=== PATIENT | male | born 1955 | race Caucasian/White ===

== ENCOUNTER 2023-03-24 04:52 | Emergency (ER) | payer OTHER ==
--- OUTSIDE RECORDS SUMMARY | 2023-03-24 04:59 | XMS REPORT | Continuity of Care Document ---
:1955 Author Organization [facility] t Address [address] [place] [address] [place] [id number] Care Team Providers Name Role Phone ILDEFONSOANJELICA MUSE LEONA Primary Care Physician Unavailable MARYJO CROW Attending Clinician Unavailable Carson Candelario Attending Clinician ADDI PAGE Attending Clinician Unavailable Amadou Post Attending Clinician Addi Page MD Attending Clinician Kailyn Guevara Attending Clinician Unknown, Attending Attending Clinician Unavailable UNKNOWN, ATTENDING Attending Clinician Unavailable Payers Payer Name Policy Type Policy Number Effective Date Expiration Date S kalyn [employer] MEDICARE ADV [id number] 2019 00:00:00 Problems Condition Condition Condition Status Onset Resolution Last Treating Co mments Source Name Details Category Date Date Treatment Clinician Date Hyperlipid Hyperlipi Problem Active 2020-10-30 Memoria emia demia 01:35:37 l (disorder) (disorder) He rmann Active Problem 10/30/2020 [facility] Hypothyroi Problem Active 2020-10-30 M emoria dism Hypothyroi 01:35:37 l (disorder) dism Jeremiah n (disorder) Active Problem 10/30/2020 [facility] Simple Simple Problem Active 2020-10-30 Monty krissy obesity obesity 01:35:37 l (disorder) (disorder) He rmann Active Problem 10/30/2020 [facility] Diabetes Diabetes Problem Active 2020-10-30 Memoria mellitus mellitus 01:35:37 l (disorder) (disorder) He rmann Active Problem 10/30/2020 [facility] Diplopia Diplopia Problem Active 2020-10-30 Memoria (disorder) (disorder) 01:35:37 l Active Yoel Problem 10/30/2020 [facility] Hypertensi Hypertens Problem Active 2020-10-30 Memoria ve norbert 01:35:37 l disorder, disorder, Herm emperatriz systemic systemic arterial arterial (disorder) (disorder) Active Problem 10/30/2020 [facility] No known No known Disease Unive rs active active ity of problems problems [facility] Allergies, Adverse Reactions, Alerts Allergy Allergy Status Severity Reaction(s) Onset Inactive Treating Comm ents Source Name Type Date Date Clinician NO KNOWN Drug Active Univers ALLERGIE Class ity of S [facility] codeine codeine Active Memoria l Yoel penicill penicill Active Memori a in in l [place] Demerol Demerol Active Memoria l Yoel Social History Social Habit Start Date Stop Date Quantity Comments Source Sex Assigned At [facility] Exposure to Not sure [facility] SARS-CoV-2 (event) Medica l [place] Tobacco use and 2020-10-26 2020-10-26 Never used [facility] exposure 00:00:00 00:00:00 [facility] Smoking Status Start Date Stop Date Source Social History [facility] Medications Ordered Filled Start Stop Current Ordering Indication Dosage Frequency Signature Comments Components Source Medication Medication Date Date Medication? Clinician (SIG) Name Name triamcinolo 2020- No 40mg 40 mg, Uni vers ne 10-26 Intra-sandra ity of acetonide 23:00: 21:53 [place], [place] (KENALOG) 00 :00 ONCE, 1 Medical injection dose, Wed Branc h 40 mg 10/26/20 at 1700, Routine triamcinolo 2020- No 40mg Unive rs ne 10-26 ity of acetonide 23:00: 21:53 [place] (KENALOG) 00 :00 Medical injection Branch 40 mg triamcinolo 2020- No 40mg 40 mg, Uni vers ne 10-26 Intra-sandra ity of acetonide 23:00: 21:[place] 00 :00 ONCE, 1 Medical injection dose, Wed Branc h 40 mg 10/26/20 at 1700, Routine triamcinolo 2020-0 2020- No 40mg Unive rs ne 10-26 ity of acetonide 23:00: 21:53 [place] (KE[place]LOG) 00 :00 Medical injection Branch 40 mg Hydralazine 2019-10 Yes 25 mg = 1 M emoria Hydrochlori 2-23 tab, PO, l de 25 MG 16:23: TID, # 270 Her chavis Oral Tablet 00 tab, 1 Refill(s) Hydralazine 2019-10 Yes 25 mg = 1 M emoria Hydrochlori 2-23 tab, PO, l de 25 MG 16:23: TID, # 270 Her chavis Oral Tablet 00 tab, 1 Refill(s) Folic Acid 2019-10 Yes 1 mg, PO, Me moria 2-23 Daily, 0 l 16:23: Refill(s) Yoel 00 Folic Acid 2019-10 Yes 1 mg, PO, Me moria 2-23 Daily, 0 l 16:23: Refill(s) [place] 00 Hydralazine 2019-10 Yes 25 mg = 1 M emoria Hydrochlori 2-23 tab, PO, l de 25 MG 16:23: TID, # 270 Her chavis Oral Tablet 00 tab, 1 Refill(s) Folic Acid 2019-10 Yes 1 mg, PO, Me moria 2-23 Daily, 0 l 16:23: Refill(s) [place] 00 Hydralazine 2019-10 Yes 25 mg = 1 M emoria Hydrochlori 2-23 tab, PO, l de 25 MG 16:23: TID, # 270 Her chavis Oral Tablet 00 tab, 1 Refill(s) Folic Acid 2019-10 Yes 1 mg, PO, Me moria 2-23 Daily, 0 l 16:23: Refill(s) Yoel 00 Hydralazine 2019-10 Yes 25 mg = 1 M emoria Hydrochlori 2-23 tab, PO, l de 25 MG 16:23: TID, # 270 Her chavis Oral Tablet 00 tab, 1 Refill(s) Folic Acid 2019-10 Yes 1 mg, PO, Me moria 2-23 Daily, 0 l 16:23: Refill(s) Yoel 00 Hydralazine 2019-10 Yes 25 mg = 1 M emoria Hydrochlori 2-23 tab, PO, l de 25 MG 16:23: TID, # 270 Her partha Oral Tablet 00 tab, 1 Refill(s) Folic Acid 2019-10 Yes 1 mg, PO, Me moria 2-23 Daily, 0 l 16:23: Refill(s) Yoel 00 allopurinol 2019-10 Yes 100 mg = 1 Memoria 100 mg oral 2-23 tab, PO, l tablet 16:16: BID, 0 [place] 00 Refill(s) amLODIPine 2019-10 Yes 10 mg = 1 Me moria 10 mg oral 2-23 tab, PO, l tablet 16:16: Daily, 0 Yoel 00 Refill(s) Hydrochloro 2019-10 Yes 1 tab, PO, Memoria thiazide 2-23 Daily, 0 l 12.5 MG / 16:16: Refill(s) Her chavis Olmesartan 00 medoxomil 40 MG Oral Tablet pravastatin 2019-10 Yes 40 mg = 1 M emoria 40 mg oral 2-23 tab, PO, l tablet 16:16: Daily, 0 [place] 00 Refill(s) DULoxetine 2019-10 Yes 60 mg = 1 Me moria 60 mg oral 2-23 cap, PO, l delayed 16:16: Daily, 0 Jeremiah n release 00 Refill(s) capsule metoprolol 2019-10 Yes 25 mg = 1 Me moria tartrate 25 2-23 tab, PO, l mg oral 16:16: BID, 0 [place] tablet 00 Refill(s) zolpidem 2019-10 Yes 12.5 mg = Monty krissy 12.5 mg 2-23 1 tab, PO, l oral 16:16: Bedtime, Yoel tablet, 00 PRN for extended sleep, 0 release Refill(s) levothyroxi 2019-10 Yes 100 Memori a ne 100 mcg 2-23 microgram l (0.1 mg) 16:16: = 1 tab, Princess nn oral tablet 00 PO, Daily, 0 Refill(s) glimepiride 2019-10 Yes 2 mg = 1 Me moria 2 mg oral 2-23 tab, PO, l tablet 16:16: Daily, 0 Yoel 00 Refill(s) Metformin 2019-10 Yes 1,000 mg = Me moria hydrochlori 2-23 1 tab, PO, l de 1000 MG 16:16: BID-Meals, H ermann Oral Tablet 00 # 30 tab, 0 Refill(s) allopurinol 2019-10 Yes 100 mg = 1 Memoria 100 mg oral 2-23 tab, PO, l tablet 16:16: BID, 0 Yoel 00 Refill(s) amLODIPine 2019-10 Yes 10 mg = 1 Me moria 10 mg oral 2-23 tab, PO, l tablet 16:16: Daily, 0 [place] 00 Refill(s) Hydrochloro 2019-10 Yes 1 tab, PO, Memoria thiazide 2-23 Daily, 0 l 12.5 MG / 16:16: Refill(s) Her partha Olmesartan 00 medoxomil 40 MG Oral Tablet pravastatin 2019-10 Yes 40 mg = 1 M emoria 40 mg oral 2-23 tab, PO, l tablet 16:16: Daily, 0 [place] 00 Refill(s) DULoxetine 2019-10 Yes 60 mg = 1 Me moria 60 mg oral 2-23 cap, PO, l delayed 16:16: Daily, 0 Jeremiah n release 00 Refill(s) capsule metoprolol 2019-10 Yes 25 mg = 1 Me moria tartrate 25 2-23 tab, PO, l mg oral 16:16: BID, 0 [place] tablet 00 Refill(s) zolpidem 2019-10 Yes 12.5 mg = Monty krissy 12.5 mg 2-23 1 tab, PO, l oral 16:16: Bedtime, Yoel tablet, 00 PRN for extended sleep, 0 release Refill(s) levothyroxi 2019-10 Yes 100 Memori a ne 100 mcg 2-23 microgram l (0.1 mg) 16:16: = 1 tab, Princess nn oral tablet 00 PO, Daily, 0 Refill(s) glimepiride 2019-10 Yes 2 mg = 1 Me moria 2 mg oral 2-23 tab, PO, l tablet 16:16: Daily, 0 [place] 00 Refill(s) Metformin 2019-10 Yes 1,000 mg = Me moria hydrochlori 2-23 1 tab, PO, l de 1000 MG 16:16: BID-Meals, H ermann Oral Tablet 00 # 30 tab, 0 Refill(s) allopurinol 2019-10 Yes 100 mg = 1 Memoria 100 mg oral 2-23 tab, PO, l tablet 16:16: BID, 0 Yoel 00 Refill(s) Metformin 2019-10 Yes 1,000 mg = Me moria hydrochlori 2-23 1 tab, PO, l de 1000 MG 16:16: BID-Meals, H ermann Oral Tablet 00 # 30 tab, 0 Refill(s) amLODIPine 2019-10 Yes 10 mg = 1 Me moria 10 mg oral 2-23 tab, PO, l tablet 16:16: Daily, 0 Oyel 00 Refill(s) allopurinol 2019-10 Yes 100 mg = 1 Memoria 100 mg oral 2-23 tab, PO, l tablet 16:16: BID, 0 [place] 00 Refill(s) amLODIPine 2019-10 Yes 10 mg = 1 Me moria 10 mg oral 2-23 tab, PO, l tablet 16:16: Daily, 0 [place] 00 Refill(s) Hydrochloro 2019-10 Yes 1 tab, PO, Memoria thiazide 2-23 Daily, 0 l 12.5 MG / 16:16: Refill(s) Her chavis Olmesartan 00 medoxomil 40 MG Oral Tablet pravastatin 2019-10 Yes 40 mg = 1 M emoria 40 mg oral 2-23 tab, PO, l tablet 16:16: Daily, 0 Yoel 00 Refill(s) DULoxetine 2019-10 Yes 60 mg = 1 Me moria 60 mg oral 2-23 cap, PO, l delayed 16:16: Daily, 0 Jeremiah n release 00 Refill(s) capsule metoprolol 2019-10 Yes 25 mg = 1 Me moria tartrate 25 2-23 tab, PO, l mg oral 16:16: BID, 0 Yoel tablet 00 Refill(s) zolpidem 2019-10 Yes 12.5 mg = Monty krissy 12.5 mg 2-23 1 tab, PO, l oral 16:16: Bedtime, [place] tablet, 00 PRN for extended sleep, 0 release Refill(s) levothyroxi 2019-10 Yes 100 Memori a ne 100 mcg 2-23 microgram l (0.1 mg) 16:16: = 1 tab, Princess nn oral tablet 00 PO, Daily, 0 Refill(s) glimepiride 2019-10 Yes 2 mg = 1 Me moria 2 mg oral 2-23 tab, PO, l tablet 16:16: Daily, 0 [place] 00 Refill(s) Hydrochloro 2019-10 Yes 1 tab, PO, Memoria thiazide 2-23 Daily, 0 l 12.5 MG / 16:16: Refill(s) Her chavis Olmesartan 00 medoxomil 40 MG Oral Tablet pravastatin 2019-10 Yes 40 mg = 1 M emoria 40 mg oral 2-23 tab, PO, l tablet 16:16: Daily, 0 [place] 00 Refill(s) DULoxetine 2019-10 Yes 60 mg = 1 Me moria 60 mg oral 2-23 cap, PO, l delayed 16:16: Daily, 0 Jeremiah n release 00 Refill(s) capsule metoprolol 2019-10 Yes 25 mg = 1 Me moria tartrate 25 2-23 tab, PO, l mg oral 16:16: BID, 0 Yoel tablet 00 Refill(s) zolpidem 2019-10 Yes 12.5 mg = Monty krissy 12.5 mg 2-23 1 tab, PO, l oral 16:16: Bedtime, Yoel tablet, 00 PRN for extended sleep, 0 release Refill(s) levothyroxi 2019-10 Yes 100 Memori a ne 100 mcg 2-23 microgram l (0.1 mg) 16:16: = 1 tab, Princess nn oral tablet 00 PO, Daily, 0 Refill(s) glimepiride 2019-10 Yes 2 mg = 1 Me moria 2 mg oral 2-23 tab, PO, l tablet 16:16: Daily, 0 Yoel 00 Refill(s) Metformin 2019-10 Yes 1,000 mg = Me moria hydrochlori 2-23 1 tab, PO, l de 1000 MG 16:16: BID-Meals, H ermann Oral Tablet 00 # 30 tab, 0 Refill(s) allopurinol 2019-10 Yes 100 mg = 1 Memoria 100 mg oral 2-23 tab, PO, l tablet 16:16: BID, 0 [place] 00 Refill(s) amLODIPine 2019-10 Yes 10 mg = 1 Me moria 10 mg oral 2-23 tab, PO, l tablet 16:16: Daily, 0 Yoel 00 Refill(s) Hydrochloro 2019-10 Yes 1 tab, PO, Memoria thiazide 2-23 Daily, 0 l 12.5 MG / 16:16: Refill(s) Her chavis Olmesartan 00 medoxomil 40 MG Oral Tablet pravastatin 2019-10 Yes 40 mg = 1 M emoria 40 mg oral 2-23 tab, PO, l tablet 16:16: Daily, 0 [place] 00 Refill(s) DULoxetine 2019-10 Yes 60 mg = 1 Me moria 60 mg oral 2-23 cap, PO, l delayed 16:16: Daily, 0 Jeremiah n release 00 Refill(s) capsule metoprolol 2019-10 Yes 25 mg = 1 Me moria tartrate 25 2-23 tab, PO, l mg oral 16:16: BID, 0 [place] tablet 00 Refill(s) zolpidem 2019-10 Yes 12.5 mg = Monty krissy 12.5 mg 2-23 1 tab, PO, l oral 16:16: Bedtime, Yoel tablet, 00 PRN for extended sleep, 0 release Refill(s) levothyroxi 2019-10 Yes 100 Memori a ne 100 mcg 2-23 microgram l (0.1 mg) 16:16: = 1 tab, Princess nn oral tablet 00 PO, Daily, 0 Refill(s) glimepiride 2019-10 Yes 2 mg = 1 Me moria 2 mg oral 2-23 tab, PO, l tablet 16:16: Daily, 0 Yoel 00 Refill(s) Metformin 2019-10 Yes 1,000 mg = Me moria hydrochlori 2-23 1 tab, PO, l de 1000 MG 16:16: BID-Meals, H ermann Oral Tablet 00 # 30 tab, 0 Refill(s) Metformin 2019-10 Yes 1,000 mg = Me moria hydrochlori 2-23 1 tab, PO, l de 1000 MG 16:16: BID-Meals, H ermann Oral Tablet 00 # 30 tab, 0 Refill(s) allopurinol 2019-10 Yes 100 mg = 1 Memoria 100 mg oral 2-23 tab, PO, l tablet 16:16: BID, 0 [place] 00 Refill(s) amLODIPine 2019-10 Yes 10 mg = 1 Me moria 10 mg oral 2-23 tab, PO, l tablet 16:16: Daily, 0 [place] 00 Refill(s) Hydrochloro 2019-10 Yes 1 tab, PO, Memoria thiazide 2-23 Daily, 0 l 12.5 MG / 16:16: Refill(s) Her chavis Olmesartan 00 medoxomil 40 MG Oral Tablet pravastatin 2019-10 Yes 40 mg = 1 M emoria 40 mg oral 2-23 tab, PO, l tablet 16:16: Daily, 0 Yoel 00 Refill(s) DULoxetine 2019-10 Yes 60 mg = 1 Me moria 60 mg oral 2-23 cap, PO, l delayed 16:16: Daily, 0 Jeremiah n release 00 Refill(s) capsule metoprolol 2019-10 Yes 25 mg = 1 Me moria tartrate 25 2-23 tab, PO, l mg oral 16:16: BID, 0 Yoel tablet 00 Refill(s) zolpidem 2019-10 Yes 12.5 mg = Monty krissy 12.5 mg 2-23 1 tab, PO, l oral 16:16: Bedtime, [place] tablet, 00 PRN for extended sleep, 0 release Refill(s) levothyroxi 2019-10 Yes 100 Memori a ne 100 mcg 2-23 microgram l (0.1 mg) 16:16: = 1 tab, Princess nn oral tablet 00 PO, Daily, 0 Refill(s) glimepiride 2019-10 Yes 2 mg = 1 Oh moria 2 mg oral 2-23 tab, PO, l tablet 16:16: Daily, 0 Yoel 00 Refill(s) amLODIPine Yes amlodipine U nivers 10 mg 3-14 10 mg ity of tablet 22:54: tablet [address] amLODIPine Yes amlodipine U nivers 10 mg 3-14 10 mg ity of tablet 22:54: tablet [address] hydroCHLORO Yes hydrochlor Univers thiazide 50 3-14 othiazide ity of mg tablet 22:54: [address] olmesartan- Yes olmesartan Univers hydrochloro 3-14 40 ity of thiazide 22:54: mg-hydroch Primo as 40-12.5 mg lorothiazi Med ical per tablet de 12.5 mg Bra nc tablet pravastatin Yes pravastati Univers 40 mg 3-14 n 40 mg ity of tablet 22:54: tablet [address] glimepiride 2019-0 Yes glimepirid Univers 2 mg tablet 3-14 e 2 mg ity of 22:54: tablet [address] zolpidem Yes zolpidem Unive rs 12.5 mg CR 3-14 ER 12.5 mg ity of tablet 22:54: tablet,ext [place] [id number] ended Medical release,[facility] ltiphase hydroCHLORO Yes hydrochlor Univers thiazide 50 3-14 othiazide ity of mg tablet 22:54: 50 mg [place] [address] tablet [facility] olmesartan- Yes olmesartan Univers hydrochloro 3-14 40 ity of thiazide 22:54: mg-hydroch Primo as 40-12.5 mg 33 lorothiazi Med ical per tablet de 12.5 mg Bra nc tablet pravastatin Yes pravastati Univers 40 mg 3-14 n 40 mg ity of tablet 22:54: tablet [address] glimepiride Yes glimepirid Univers 2 mg tablet 3-14 e 2 mg ity of 22:54: tablet [address] zolpidem Yes zolpidem Unive rs 12.5 mg CR 3-14 ER 12.5 mg ity of tablet 22:54: tablet,ext [place] [address] ended Medical [facility] ltiphase amLODIPine Yes amlodipine U nivers 10 mg 3-14 10 mg ity of tablet 22:54: tablet [address] hydroCHLORO 0 Yes hydrochlor Univers thiazide 50 3-14 othiazide ity of mg tablet 22:54: 50 mg [place] [address] tablet [facility] olmesartan- Yes olmesartan Univers hydrochloro 3-14 40 ity of thiazide 22:54: mg-hydroch Primo as 40-12.5 mg 33 lorothiazi Med ical per tablet de 12.5 mg Bra nch tablet pravastatin Yes pravastati Univers 40 mg 3-14 n 40 mg ity of tablet 22:54: tablet [address] glimepiride 2019- Yes glimepirid Univers 2 mg tablet 3-14 e 2 mg ity of 22:54: tablet [address] zolpidem 2020-0 Yes zolpidem Unive rs 12.5 mg CR 3-14 ER 12.5 mg ity of tablet 22:54: tablet,ext [place] [id number] ended Medical release,[facility] ltiphase amLODIPine 2019-0 Yes amlodipine U nivers 10 mg 3-14 10 mg ity of tablet 22:54: tablet [address] hydroCHLORO 2019-0 Yes hydrochlor Univers thiazide 50 3-14 othiazide ity of mg tablet 22:54: 50 mg [place] [address] tablet [facility] olmesartan- 0 Yes olmesartan Univers hydrochloro 3-14 40 ity of thiazide 22:54: mg-hydroch Primo as 40-12.5 mg 33 lorothiazi Med ical per tablet de 12.5 mg Bra nch tablet pravastatin 0 Yes pravastati Univers 40 mg 3-14 n 40 mg ity of tablet 22:54: tablet [address] glimepiride Yes glimepirid Univers 2 mg tablet 3-14 e 2 mg ity of 22:54: tablet [address] zolpidem Yes zolpidem Unive rs 12.5 mg CR 3-14 ER 12.5 mg ity of tablet 22:54: tablet,ext [place] [address] ended Medical [facility] ltiphase amLODIPine 2019-0 Yes amlodipine U nivers 10 mg 3-14 10 mg ity of tablet 22:54: tablet [address] hydroCHLORO 0 Yes hydrochlor Univers thiazide 50 3-14 othiazide ity of mg tablet 22:54: 50 mg [place] [address] tablet [facility] olmesartan- Yes olmesartan Univers hydrochloro 3-14 40 ity of thiazide 22:54: mg-hydroch Primo as 40-12.5 mg 33 lorothiazi Med ical per tablet de 12.5 mg Bra nch tablet pravastatin 2019-0 Yes pravastati Univers 40 mg 3-14 n 40 mg ity of tablet 22:54: tablet [address] glimepiride Yes glimepirid Univers 2 mg tablet 3-14 e 2 mg ity of 22:54: tablet [address] zolpidem Yes zolpidem Unive rs 12.5 mg CR 3-14 ER 12.5 mg ity of tablet 22:54: tablet,ext [place] [address] ended Medical release, Branch ltiphase amLODIPine 2019-0 Yes amlodipine U nivers 10 mg 3-14 10 mg ity of tablet 22:54: tablet [address] hydroCHLORO 2019-0 Yes hydrochlor Univers thiazide 50 3-14 othiazide ity of mg tablet 22:54: 50 mg [place] [address] tablet [facility] olmesartan- 2019-0 Yes olmesartan Univers hydrochloro 3-14 40 ity of thiazide 22:54: mg-hydroch Primo as 40-12.5 mg lorothiazi Med ical per tablet de 12.5 mg Bra nch tablet pravastatin 2019-0 Yes pravastati Univers 40 mg 3-14 n 40 mg ity of tablet 22:54: tablet [address] glimepiride 2019-0 Yes glimepirid Univers 2 mg tablet -14 e 2 mg ity of 22:54: tablet [address] zolpidem 2019-0 Yes zolpidem Unive rs 12.5 mg CR 3-14 ER 12.5 mg ity of tablet 22:54: tablet,ext [place] [address] ended Medical release,[facility] ltiphase DULoxetine 0 Yes Univers 60 mg 3-01 ity of capsule 00:00: [address] DULoxetine 2019-0 Yes Univers 60 mg 3-01 ity of capsule 00:00: [address] DULoxetine 2019-0 Yes Univers 60 mg 3-01 ity of capsule 00:00: [address] DULoxetine 2019-0 Yes Univers 60 mg 3-01 ity of capsule 00:00: [address] DULoxetine 2019-0 Yes Univers 60 mg 3-01 ity of capsule 00:00: [address] DULoxetine 2019-0 Yes Univers 60 mg 3-01 ity of capsule 00:00: [address] metFORMIN 2019-0 Yes Univers 1,000 mg 2-24 ity of tablet 00:00: [address] metFORMIN 2019-0 Yes Univers 1,000 mg 2-24 ity of tablet 00:00: [address] metFORMIN 2019-0 Yes Univers 1,000 mg 2-24 ity of tablet 00:00: [address] metFORMIN 2020-0 Yes Univers 1,000 mg 2-24 ity of tablet 00:00: [place] 00 Medical Branch metFORMIN 2020-0 Yes Univers 1,000 mg 2-24 ity of tablet 00:00: 00 Medical Branch metFORMIN 2020-0 Yes Univers 1,000 mg 2-24 ity of tablet 00:00: 00 Medical Branch gabapentin 2020-0 Yes 100mg Take 100 Un misti 100 mg 2-20 mg by ity of capsule 00:00: mouth 00 daily. Medical Branch gabapentin 2020-0 Yes 100mg Take 100 Un misti 100 mg 2-20 mg by ity of capsule 00:00: mouth 00 daily. Medical Branch gabapentin 2020-0 Yes 100mg Take 100 Un misti 100 mg 2-20 mg by ity of capsule 00:00: mouth 00 daily. Medical Branch gabapentin 2020-0 Yes 100mg Take 100 Un misti 100 mg 2-20 mg by ity of capsule 00:00: [facility] 00 daily. Medical Branch gabapentin 2020-0 Yes 100mg Take 100 Un misti 100 mg 2-20 mg by ity of capsule 00:00: [facility] 00 daily. Medical Branch gabapentin 2020-0 Yes 100mg Take 100 Un misti 100 mg 2-20 mg by ity of capsule 00:00: mouth 00 daily. Medical Branch hydrALAZINE 2020-0 Yes TAKE 1 Univ ers 25 mg 2-19 TABLET BY ity of tablet 00:00: [facility] 00 THREE Medical TIMES A Branch DAY hydrALAZINE 2020-0 Yes TAKE 1 Univ ers 25 mg 2-19 TABLET BY ity of tablet 00:00: [facility] 00 THREE Medical TIMES A Branch DAY hydrALAZINE 2020-0 Yes TAKE 1 Univ ers 25 mg 2-19 TABLET BY ity of tablet 00:00: [facility] 00 THREE Medical TIMES A Branch DAY hydrALAZINE 2020-0 Yes TAKE 1 Univ ers 25 mg 2-19 TABLET BY ity of tablet 00:00: MOUTH 00 THREE Medical TIMES A Branch DAY hydrALAZINE 2020-0 Yes TAKE 1 Univ ers 25 mg 2-19 TABLET BY ity of tablet 00:00: [facility] 00 THREE Medical TIMES A Branch DAY hydrALAZINE 2020-0 Yes TAKE 1 Univ ers 25 mg 2-19 TABLET BY ity of tablet 00:00: MOUTH 00 THREE Medical TIMES A Branch DAY allopurinoL 2020-0 Yes Univer s 100 mg 1-06 ity of tablet 00:00: [place] 00 [facility] Branch allopurinoL 2020-0 Yes Univer s 100 mg 1-06 ity of tablet 00:00: [place] [facility] allopurinoL 2020-0 Yes Univer s 100 mg 1-06 ity of tablet 00:00: [place] [facility] allopurinoL 2020-0 Yes Univer s 100 mg 1-06 ity of tablet 00:00: [place] [id number] Medical Linneus allopurinoL 2020-0 Yes Univer s 100 mg 1-06 ity of tablet 00:00: [place] [facility] allopurinoL 2020-0 Yes Univer s 100 mg 1-06 ity of tablet 00:00: [address] levothyroxi 2018-10 Yes 100ug Take 100 U nivers ne 100 mcg 2-17 mcg by ity of tablet 00:00: mouth. [place] [facility] levothyroxi 2018-10 Yes 100ug Take 100 U nivers ne 100 mcg 2-17 mcg by ity of tablet 00:00: mouth. [place] [facility] levothyroxi 2018-10 Yes 100ug Take 100 U nivers ne 100 mcg 2-17 mcg by ity of tablet 00:00: mouth. [address] levothyroxi 2018-10 Yes 100ug Take 100 U nivers ne 100 mcg 2-17 mcg by ity of tablet 00:00: mouth. [address] levothyroxi 2018-10 Yes 100ug Take 100 U nivers ne 100 mcg 2-17 mcg by ity of tablet 00:00: mouth. [address] levothyroxi 2018-10 Yes 100ug Take 100 U nivers ne 100 mcg 2-17 mcg by ity of tablet 00:00: mouth. [address] Vital Signs Vital Name Observation Time Observation Value Comments Source Systolic blood 2020-10-26 21:21:00 144 mm[Hg] Univer sity of pressure [facility] Diastolic blood 2020-10-26 21:21:00 78 mm[Hg] Unive rsity of pressure [facility] Heart rate 2020-10-26 21:21:00 60 /min [facility] Respiratory rate 2020-10-26 21:19:00 18 /min Univ ersity of [facility] Body height 2020-10-26 21:19:00 172.7 cm [facility] Body weight 2020-10-26 21:19:00 90.719 kg Universi ty of [place] [facility] BMI 2020-10-26 21:19:00 30.41 kg/m2 [facility] ty of [place] [facility] Systolic blood 2020-02-04 15:03:00 137 mm[Hg] Univer sity of pressure [place] [facility] [place] Diastolic blood 2020-02-04 15:03:00 75 mm[Hg] Unive rsity of pressure [facility] Body height 2020-02-04 15:03:00 172.7 cm Universi ty of [place] [facility] Body weight 2020-02-04 15:03:00 90.719 kg Universi ty of [place] [facility] BMI 2020-02-04 15:03:00 30.41 kg/m2 Universi ty of [facility] Systolic blood 2020-02-04 15:03:00 137 mm[Hg] Univer sity of pressure [facility] Diastolic blood 2020-02-04 15:03:00 75 mm[Hg] Unive rsity of [facility] Body height 2020-02-04 15:03:00 172.7 cm Universi ty of [place] [facility] [place] Body weight 2020-02-04 15:03:00 90.719 kg [facility]i ty of [place] [facility] BMI 2020-02-04 15:03:00 30.41 kg/m2 Universi ty of [facility] Systolic blood 2019-12-19 22:51:00 147 mm[Hg] Univer sity of [facility] Diastolic blood 2019-12-19 22:51:00 95 mm[Hg] Unive rsity of [facility] Heart rate 2019-12-19 22:49:00 92 /min Universi ty of [place] [facility] [place] Body temperature 2019-12-19 22:49:00 36.78 Melanie Univ ersity of [facility] Respiratory rate 2019-12-19 22:49:00 18 /min Univ ersity of [facility] Body height 2019-12-19 22:49:00 172.7 cm [facility]i [facility] of [place] [facility] Body weight 2019-12-19 22:49:00 90.719 kg [facility] [place] [facility] BMI 2019-12-19 22:49:00 30.41 kg/m2 Universi ty of [facility] Oxygen saturation in 2019-12-19 22:49:00 99 /min [facility] Arterial blood by [facility] Pulse oximetry Branch Systolic (mm Hg) 2020-10-27 21:54:00 Monty rial [place] Diastolic (mm Hg) 2020-10-27 21:54:00 Mem orial Yoel Heart Rate 2020-10-27 21:54:00 [facility] [place] Respitory Rate 2020-10-27 21:54:00 Memori al [place] Height 2020-10-27 21:54:00 172.72 cm [facility] [place] Weight 2020-10-27 21:54:00 [facility] [place] BMI Calculated 2020-10-27 21:54:00 Memori al Yoel Systolic (mm Hg) 2020-09-28 16:12:00 Monty rial Yoel Diastolic (mm Hg) 2020-09-28 16:12:00 Mem orial Yoel Heart Rate 2020-09-28 16:12:00 [facility] Respitory Rate 2020-09-28 16:12:00 [facility] Height 2020-09-28 16:12:00 172.72 cm [facility] Weight 2020-09-28 16:12:00 [facility] BMI Calculated 2020-09-28 16:12:00 [facility] Procedures Procedure Date / Time Performed Performing Clinician Sourc e XR SHOULDER <2 VW 2020-02-04 15:08:12 Addi Page [facility] [place] Encounters Start End Encounter Admission Attending Care Care Encounter Source Date/Time Date/Time Type Type Clinicians Facility Department ID 2021-11-01 [facility] [id number] Common 12:39:35 [id number] [facility] 2020-12-06 2020-12-06 Outpatient Colette CROW [facility] [id number] Univers 14:10:00 14:10:00 MARYJO stratton [facility] 2020-10-27 2020-10-28 Outpatient nullFlavo MNA [id number] Memoria 21:45:00 05:59:59 r Neurology 01 l Jose Diallo 2020-10-27 2020-10-28 Outpatient nullFlavo MNA [id number] Mem[facility] 21:45:00 05:59:59 r Neurology 01 l Jose Diallo 2020-10-27 2020-10-27 Outpatient JORDI CandelarioMISCHER [id number] 15:45:00 23:59:59 Carson 01 Rayshawn 2020-10-27 2020-10-27 Outpatient MHIE MHIE [id number] Memoria 15:45:00 15:45:00 01 shelia Diallo 2020-10-26 2020-10-26 [facility] [id number] Univers 15:45:00 15:45:00 ADDI [facility] 2020-10-26 2020-10-26 Office Amadou Palomares Ronan [facility] [id number] Univers 15:14:42 15:29:42 Visit PageJourdanaisha Delgado SEAT 4a 350.1.13.10 ity of Surgical 4.2.7.2.686 Primo as Specialti [id number] Me dical es 198 [facility] 2020-09-28 2020-09-29 Outpatient nullFlavo MNA [id number] Mem[facility] 15:30:00 05:59:59 r Neurology 00 l Jose Reaann 2020-09-28 2020-09-29 Outpatient nullFlavo MNA [id number] Mem[facility] 15:30:00 05:59:59 r Neurology 00 l Jose Reaann 2020-09-28 2020-09-28 Outpatient MANDY CandelarioSCHER MHMISCHER [id number] 09:30:00 23:59:59 Carson 00 Rayshawn 2020-09-28 2020-09-28 Outpatient MHIE MHIE [id number] Memoria 09:30:00 09:30:00 00 l Talmage 2020-02-04 2020-02-04 [facility] [id number] Univers 10:08:11 [facility]59[facility] 2020-02-04 [facility] [id number] Univers 10:08:00 23:59:00 Encounter Addi Delgado SEAT 4a 350.1.13.10 ity of Surgical 4.2.7.2.686 Primo as Specialti [id number] Oh dical es 809 [facility] 2020-02-04 2020-02-04 [facility] [id number] 10:08:00 23:59:00 Encounter Addi Delgado Health 350.1.13.10 Surgical 4.2.7.2.686 Specialti [id number] es 809 [place] 2020-02-04 2020-02-04 Office Barbara [facility] [id number] Univers 10:02:15 10:53:47 Visit Addi Delgado [facility] 350.1.13.10 it y of Surgical 4.2.7.2.686 Primo as Specialti [id number] Me dical es 198 [facility] 2020-02-04 2020-02-04 Office Barbara [facility] [id number] 10:02:15 10:53:47 Visit Addi Delgado [facility] 350.1.13.10 Surgical 4.2.7.2.686 Specialti [id number] es 198 [place] 2019-12-19 2019-12-19 [place], Kailyn [facility] 1.2.840.114 [id number] Univers 17:42:38 17:57:38 Care Unknown, Attending Health 350.1.13.10 ity of Surgical 4.2.7.2.686 Primo as Specialti [id number] Me dical es [address] [place] 2019-12-19 2019-12-19 Outpatient R UNKNOWN, [facility] [id number] Univers 17:30:00 17:30:00 ATTENDING ity of [facility] Results Test Description Test Time Test Comments Results Result Comments Source HEMATOLOGY 2020-09-28 17:14:00 Test Item Value Reference Range Interpretation Comme nts Lymphocytes # (test code = Lymphocytes #) 4999 850-7670 [facility]lshapLHDMJSGKHR4610-15-71 17:14:00 Test Item Value Reference Range Interpretation Comments Monocytes # (test code = Monocytes #) 087 200-950 [facility]YqllrcdEVLEBSRJZI0590-67-86 17:14:00 Test Item Value Reference Range Interpretation Comments Eosinophils # (test code = Eosinophils 107 15-500 #) [facility]OrreyblHINLMXEOYS2575-89-40 17:14:00 Test Item Value Reference Range Interpretation Comments Basophils # (test code 64 See_Comment [Aut omated message] The = Basophils #) system which generated this result tra nsmitted reference range : <=200. The reference r alejandro was not used to int erpret this result as normal/abnormal . [facility] HendersonFuprsmfVWBHACUSPF5301-57-54 17:14:00 Test Item Value Reference Range Interpretation Comments Segs (test code = Segs) 69.5 [place] 111110-12-23 17:14:00 Test Item Value Reference Range Interpretation Comments Lymphocytes (test code = Lymphocytes) 20.8 [place] 111110-12-23 17:14:00 Test Item Value Reference Range Interpretation Comments Monocytes (test code = Monocytes) 8.1 [facility]2020-12-23 17:14:00 Test Item Value Reference Range Interpretation Comments Vitamin B12 Lvl (test code = Vitamin 592 842-1620 B12 Lvl) [facility]NealvxiERUSSTDSBO9418-54-40 17:14:00 Test Item Value Reference Range Interpretation Comments Eosinophils (test code = Eosinophils) 1.0 [place] 111110-12-23 17:14:00 Test Item Value Reference Range Interpretation Comments Basophils (test code = Basophils) 0.6 [place] [address]-12-23 17:14:00 Test Item Value Reference Range Interpretation Comments Sed Rate (test code = Sed Rate) 6 [facility]villeQukqbedFJFGIDRNLY7230-76-47 17:14:00 Test Item Value Reference Range Interpretation Comments C-REACTIVE PROTEIN (test code = 4.7 C-REACTIVE PROTEIN) [facility]XdqcmyaBDZPJWYBKR2541-55-08 17:14:00 Test Item Value Reference Range Interpretation Comments WBC X 10x3 (test code = WBC X 10x3) 10.7 3.8-10.8 [facility]2020-12-23 17:14:00 Test Item Value Reference Range Interpretation Comments Vitamin B12 Lvl (test code = Vitamin 392 710-0661 B12 Lvl) [facility]TsmbuzbNCTAFWAHHP4746-05-55 17:14:00 Test Item Value Reference Range Interpretation Comments WBC X 10x3 (test code = WBC X 10x3) 10.7 3.8-10.8 [place] [address]-12-23 17:14:00 Test Item Value Reference Range Interpretation Comments RBC X 10x6 (test code = RBC X 10x6) 5.07 4.20-5.80 [place] [address]-12-23 17:14:00 Test Item Value Reference Range Interpretation Comments Hgb (test code = Hgb) 14.1 13.2-17.1 [facility]VaawcyiQMQAXYQDDY1317-03-20 17:14:00 Test Item Value Reference Range Interpretation Comments Hct (test code = Hct) 41.4 38.5-50.0 [facility]XgnnyjvZMPARIILFI3211-36-88 17:14:00 Test Item Value Reference Range Interpretation Comments RBC X 10x6 (test code = RBC X 10x6) 5.07 4.20-5.80 [place] [address]-12-23 17:14:00 Test Item Value Reference Range Interpretation Comments MCV (test code = MCV) 81.7 80.0-100.0 [place] 111110-12-23 17:14:00 Test Item Value Reference Range Interpretation Comments MCH (test code = MCH) 27.8 pg 27.0-33.0 [place] 111110-12-23 17:14:00 Test Item Value Reference Range Interpretation Comments MCHC (test code = MCHC) 34.1 32.0-36.0 [place] 111110-12-23 17:14:00 Test Item Value Reference Range Interpretation Comments RDW (test code = RDW) 13.8 11.0-15.0 [facility]XlnkivvFBPGYCZWTS6037-83-00 17:14:00 Test Item Value Reference Range Interpretation Comments Platelet (test code = Platelet) 402 140-400 [facility]RwfqcfeNCJQKSDRSA1263-64-68 17:14:00 Test Item Value Reference Range Interpretation Comments MPV (test code = MPV) 10.3 7.5-12.5 [facility]PcdtvoyAIRMFBKJNY1911-86-49 17:14:00 Test Item Value Reference Range Interpretation Comments Neutrophils # (test code = Neutrophils 7437 7543-1481 #) [facility] HendersonLxorjklEBAGPCZMKJ8093-33-86 17:14:00 Test Item Value Reference Range Interpretation Comments Hgb (test code = Hgb) 14.1 13.2-17.1 [place] 111110-12-23 17:14:00 Test Item Value Reference Range Interpretation Comments Lymphocytes # (test code = Lymphocytes 2226 850-3900 #) [facility]OfiifkpVAVAOYEERM8253-69-02 17:14:00 Test Item Value Reference Range Interpretation Comments Monocytes # (test code = Monocytes #) 867 200-950 [facility]UqlqrbxAPTZNINIZI4824-64-20 17:14:00 Test Item Value Reference Range Interpretation Comments Eosinophils # (test code = Eosinophils 107 15-500 #) [facility] HendersonKdwtnzaKARTPMCDPK4467-53-84 17:14:00 Test Item Value Reference Range Interpretation Comments Basophils # (test code 64 See_Comment [Aut omated message] The = Basophils #) system which generated this result tra nsmitted reference range : <=200. The reference r alejandro was not used to int erpret this result as normal/abnormal . [facility] HendersonVkyfgifAOEMSSCYWD5021-69-86 17:14:00 Test Item Value Reference Range Interpretation Comments Segs (test code = Segs) 69.5 [place] 111110-12-23 17:14:00 Test Item Value Reference Range Interpretation Comments Lymphocytes (test code = Lymphocytes) 20.8 [place] 111110-12-23 17:14:00 Test Item Value Reference Range Interpretation Comments Hct (test code = Hct) 41.4 38.5-50.0 [facility]JffmuqoAZUMHODMJD1814-86-67 17:14:00 Test Item Value Reference Range Interpretation Comments Monocytes (test code = Monocytes) 8.1 [facility] HendersonJphplenCIHBLZQUIS8169-56-15 17:14:00 Test Item Value Reference Range Interpretation Comments Eosinophils (test code = Eosinophils) 1.0 [place] [address]-12-23 17:14:00 Test Item Value Reference Range Interpretation Comments Basophils (test code = Basophils) 0.6 [facility]JmppvvuYQHNKWTYIX2074-20-13 17:14:00 Test Item Value Reference Range Interpretation Comments Sed Rate (test code = Sed Rate) 6 [place] [address]-12-23 17:14:00 Test Item Value Reference Range Interpretation Comments MCV (test code = MCV) 81.7 80.0-100.0 [place] 584710-12-23 17:14:00 Test Item Value Reference Range Interpretation Comments C-REACTIVE PROTEIN (test code = 4.7 C-REACTIVE PROTEIN) [facility]WptblqgMWEQKAQJOZ3490-85-60 17:14:00 Test Item Value Reference Range Interpretation Comments MCH (test code = MCH) 27.8 pg 27.0-33.0 [place] 111110-12-23 17:14:00 Test Item Value Reference Range Interpretation Comments MCHC (test code = MCHC) 34.1 32.0-36.0 [facility]NlbbhxcTFXESFMPUM4513-28-92 17:14:00 Test Item Value Reference Range Interpretation Comments RDW (test code = RDW) 13.8 11.0-15.0 [place] 111110-12-23 17:14:00 Test Item Value Reference Range Interpretation Comments Platelet (test code = Platelet) 402 140-400 [place] 111110-12-23 17:14:00 Test Item Value Reference Range Interpretation Comments MPV (test code = MPV) 10.3 7.5-12.5 [facility]QistcadDYWHMFMLPM6944-48-41 17:14:00 Test Item Value Reference Range Interpretation Comments Neutrophils # (test code = Neutrophils 7437 3079-7693 #) [facility]VmqpoitQJPJGOAZHN0035-99-95 17:14:00 Test Item Value Reference Range Interpretation Comments Lymphocytes # (test code = Lymphocytes 2226 850-3900 #) [facility]YymlmvoBJWNRRYUGH3759-66-40 17:14:00 Test Item Value Reference Range Interpretation Comments Monocytes # (test code = Monocytes #) 867 200-950 [place] 111110-12-23 17:14:00 Test Item Value Reference Range Interpretation Comments Eosinophils # (test code = Eosinophils 107 15-500 #) [facility] HendersonEupggwcASUNLCSGDV6473-15-85 17:14:00 Test Item Value Reference Range Interpretation Comments Basophils # (test code 64 See_Comment [Aut omated message] The = Basophils #) system which generated this result tra nsmitted reference range : <=200. The reference r alejandro was not used to int erpret this result as normal/abnormal . [facility] HendersonMgpjegoPCOISXLFGW2443-93-95 17:14:00 Test Item Value Reference Range Interpretation Comments Segs (test code = Segs) 69.5 [place] 111110-12-23 17:14:00 Test Item Value Reference Range Interpretation Comments Lymphocytes (test code = Lymphocytes) 20.8 [place] [address]-12-23 17:14:00 Test Item Value Reference Range Interpretation Comments Monocytes (test code = Monocytes) 8.1 [facility] HendersonCokzohxGJGRGEPEOV8838-55-10 17:14:00 Test Item Value Reference Range Interpretation Comments Eosinophils (test code = Eosinophils) 1.0 [facility] HendersonNfjiapcUFYXWFDUJG1758-41-88 17:14:00 Test Item Value Reference Range Interpretation Comments Basophils (test code = Basophils) 0.6 [place] [address]-12-23 17:14:00 Test Item Value Reference Range Interpretation Comments Sed Rate (test code = Sed Rate) 6 [facility] GreenvilleUniktosIWAVLYFEPO5350-93-65 17:14:00 Test Item Value Reference Range Interpretation Comments C-REACTIVE PROTEIN (test code = 4.7 C-REACTIVE PROTEIN) [facility]2020-12-23 17:14:00 Test Item Value Reference Range Interpretation Comments Vitamin B12 Lvl (test code = Vitamin 622 951-9051 B12 Lvl) [place] 111110-12-23 17:14:00 Test Item Value Reference Range Interpretation Comments WBC X 10x3 (test code = WBC X 10x3) 10.7 3.8-10.8 [place] 111110-12-23 17:14:00 Test Item Value Reference Range Interpretation Comments RBC X 10x6 (test code = RBC X 10x6) 5.07 4.20-5.80 [facility]2020-12-23 17:14:00 Test Item Value Reference Range Interpretation Comments Vitamin B12 Lvl (test code = Vitamin 440 644-3323 B12 Lvl) [facility]UxqvjyoAABECKGYUB1345-71-34 17:14:00 Test Item Value Reference Range Interpretation Comments WBC X 10x3 (test code = WBC X 10x3) 10.7 3.8-10.8 [place] 111110-12-23 17:14:00 Test Item Value Reference Range Interpretation Comments RBC X 10x6 (test code = RBC X 10x6) 5.07 4.20-5.80 [place] 111110-12-23 17:14:00 Test Item Value Reference Range Interpretation Comments Hgb (test code = Hgb) 14.1 13.2-17.1 [place] [address]-12-23 17:14:00 Test Item Value Reference Range Interpretation Comments Hct (test code = Hct) 41.4 38.5-50.0 [place] 111110-12-23 17:14:00 Test Item Value Reference Range Interpretation Comments MCV (test code = MCV) 81.7 80.0-100.0 [place] [address]-12-23 17:14:00 Test Item Value Reference Range Interpretation Comments Hgb (test code = Hgb) 14.1 13.2-17.1 [place] 111110-12-23 17:14:00 Test Item Value Reference Range Interpretation Comments MCH (test code = MCH) 27.8 pg 27.0-33.0 [place] 111110-12-23 17:14:00 Test Item Value Reference Range Interpretation Comments MCHC (test code = MCHC) 34.1 32.0-36.0 [place] [address]-12-23 17:14:00 Test Item Value Reference Range Interpretation Comments RDW (test code = RDW) 13.8 11.0-15.0 [place] [address]-12-23 17:14:00 Test Item Value Reference Range Interpretation Comments Platelet (test code = Platelet) 402 140-400 [facility]AisuxsySQOUCAXGMN8069-18-13 17:14:00 Test Item Value Reference Range Interpretation Comments MPV (test code = MPV) 10.3 7.5-12.5 [place] [address]-12-23 17:14:00 Test Item Value Reference Range Interpretation Comments Neutrophils # (test code = Neutrophils 7437 7159-2957 #) [facility] HendersonZhkunyqUYCBMOCTIG1161-33-53 17:14:00 Test Item Value Reference Range Interpretation Comments Lymphocytes # (test code = Lymphocytes 2226 850-3900 #) [facility] HendersonIeyacqlXNCIWSOKWD7723-51-74 17:14:00 Test Item Value Reference Range Interpretation Comments Monocytes # (test code = Monocytes #) 867 200-950 [place] 111110-12-23 17:14:00 Test Item Value Reference Range Interpretation Comments Eosinophils # (test code = Eosinophils 107 15-500 #) [facility]IwrtnwxXWLNGZCNIW0689-04-32 17:14:00 Test Item Value Reference Range Interpretation Comments Basophils # (test code 64 See_Comment [Aut omated message] The = Basophils #) system which generated this result tra nsmitted reference range : <=200. The reference r alejandro was not used to int erpret this result as normal/abnormal . [facility]PpxifeqKDYRLJVVQV1975-91-12 17:14:00 Test Item Value Reference Range Interpretation Comments Hct (test code = Hct) 41.4 38.5-50.0 [facility] HendersonDzgynmmKMAORWXDWF4534-73-83 17:14:00 Test Item Value Reference Range Interpretation Comments Segs (test code = Segs) 69.5 [facility]VvxxvpxDTQTBHHDGR7029-52-56 17:14:00 Test Item Value Reference Range Interpretation Comments Lymphocytes (test code = Lymphocytes) 20.8 [facility]PxeynirNSNPEKWFVI8270-96-88 17:14:00 Test Item Value Reference Range Interpretation Comments Monocytes (test code = Monocytes) 8.1 [facility] HendersonCdzerikKPIENOROUA5588-13-85 17:14:00 Test Item Value Reference Range Interpretation Comments Eosinophils (test code = Eosinophils) 1.0 [facility] HendersonDcqkxrhRFVWMRPLKU1547-39-39 17:14:00 Test Item Value Reference Range Interpretation Comments Basophils (test code = Basophils) 0.6 [facility] HendersonNocardjQZVZBIXCUL5225-03-73 17:14:00 Test Item Value Reference Range Interpretation Comments Sed Rate (test code = Sed Rate) 6 [facility]kinHgjmvglXQZITKENNV1363-18-18 17:14:00 Test Item Value Reference Range Interpretation Comments C-REACTIVE PROTEIN (test code = 4.7 C-REACTIVE PROTEIN) [facility]VtnmtgpQIUCTQOEFX0731-63-20 17:14:00 Test Item Value Reference Range Interpretation Comments MCV (test code = MCV) 81.7 80.0-100.0 [facility]DvghnsuOZOAEXTEJP8292-93-15 17:14:00 Test Item Value Reference Range Interpretation Comments MCH (test code = MCH) 27.8 pg 27.0-33.0 [facility] HendersonDuxanevQJCHLQAQZN4988-86-01 17:14:00 Test Item Value Reference Range Interpretation Comments MCHC (test code = MCHC) 34.1 32.0-36.0 [facility] HendersonSmrkpniUDRGTSERME6827-07-48 17:14:00 Test Item Value Reference Range Interpretation Comments RDW (test code = RDW) 13.8 11.0-15.0 [facility]HbfntqqACHZWCRSBI1155-93-73 17:14:00 Test Item Value Reference Range Interpretation Comments Platelet (test code = Platelet) 402 140-400 [facility]HsehqprFHTMLKUTRO8499-27-92 17:14:00 Test Item Value Reference Range Interpretation Comments MPV (test code = MPV) 10.3 7.5-12.5 [place] 111110-12-23 17:14:00 Test Item Value Reference Range Interpretation Comments Neutrophils # (test code = Neutrophils 7437 0677-2594 #) [facility] HendersonWovasfePIPZBAOYOH2858-33-26 17:14:00 Test Item Value Reference Range Interpretation Comments Lymphocytes # (test code = Lymphocytes 2226 850-3900 #) [facility] HendersonWahtoqjVRMHXGHDWU5492-87-72 17:14:00 Test Item Value Reference Range Interpretation Comments Monocytes # (test code = Monocytes #) 867 200-950 [facility] HendersonJzentoxJCGXJLVWEM2209-45-29 17:14:00 Test Item Value Reference Range Interpretation Comments Eosinophils # (test code = Eosinophils 107 15-500 #) [facility] HendersonZskhoszQTIVYFPHSC8830-37-67 17:14:00 Test Item Value Reference Range Interpretation Comments Basophils # (test code 64 See_Comment [Aut omated message] The = Basophils #) system which generated this result tra nsmitted reference range : <=200. The reference r alejandro was not used to int erpret this result as normal/abnormal . [facility] HendersonPvmioorFXXIKFRTPJ4029-84-13 17:14:00 Test Item Value Reference Range Interpretation Comments Segs (test code = Segs) 69.5 [facility] HendersonAwaaoavNNOSYVDRNG4601-44-31 17:14:00 Test Item Value Reference Range Interpretation Comments Lymphocytes (test code = Lymphocytes) 20.8 [facility]SymajldJLXTJYSHUX3416-82-17 17:14:00 Test Item Value Reference Range Interpretation Comments Monocytes (test code = Monocytes) 8.1 [facility] HendersonYpmzfgbSESZEOQTUE7524-50-09 17:14:00 Test Item Value Reference Range Interpretation Comments Eosinophils (test code = Eosinophils) 1.0 [facility]SybfabrNWIFKBTTRS5080-44-25 17:14:00 Test Item Value Reference Range Interpretation Comments Basophils (test code = Basophils) 0.6 [place] 111110-12-23 17:14:00 Test Item Value Reference Range Interpretation Comments Sed Rate (test code = Sed Rate) 6 [facility]villeVqvaghvHZJAWALDEJ3174-67-21 17:14:00 Test Item Value Reference Range Interpretation Comments C-REACTIVE PROTEIN (test code = 4.7 C-REACTIVE PROTEIN) [facility]2020-12-23 17:14:00 Test Item Value Reference Range Interpretation Comments Vitamin B12 Lvl (test code = Vitamin 994 375-1632 B12 Lvl) [facility]WrrcumeTLLOZCVZMF4649-29-25 17:14:00 Test Item Value Reference Range Interpretation Comments WBC X 10x3 (test code = WBC X 10x3) 10.7 3.8-10.8 [place] 111110-12-23 17:14:00 Test Item Value Reference Range Interpretation Comments RBC X 10x6 (test code = RBC X 10x6) 5.07 4.20-5.80 [facility] HendersonTbvkhytPFNPCMNXMV1747-52-07 17:14:00 Test Item Value Reference Range Interpretation Comments Hgb (test code = Hgb) 14.1 13.2-17.1 [facility] HendersonRmdtzsoXTPKAEDEPJ3270-41-67 17:14:00 Test Item Value Reference Range Interpretation Comments Hct (test code = Hct) 41.4 38.5-50.0 [facility]YsbivqjCCZPJIOJIG2420-33-25 17:14:00 Test Item Value Reference Range Interpretation Comments MCV (test code = MCV) 81.7 80.0-100.0 [facility] HendersonQenhfnxQMWZYOSWCP7298-81-68 17:14:00 Test Item Value Reference Range Interpretation Comments MCH (test code = MCH) 27.8 pg 27.0-33.0 [facility]SyggvazVFPOLZRAQQ4888-52-07 17:14:00 Test Item Value Reference Range Interpretation Comments MCHC (test code = MCHC) 34.1 32.0-36.0 [facility] HendersonRudnsntWIZBKTNHPB3623-83-44 17:14:00 Test Item Value Reference Range Interpretation Comments RDW (test code = RDW) 13.8 11.0-15.0 [facility]XyhibdoBVEYWPYOIE9800-25-45 17:14:00 Test Item Value Reference Range Interpretation Comments Platelet (test code = Platelet) 402 140-400 [facility]SgthskxDOLYDPPIXI2498-84-38 17:14:00 Test Item Value Reference Range Interpretation Comments MPV (test code = MPV) 10.3 7.5-12.5 [facility] HendersonSuttjzgBZLEJLOUJA0694-54-97 17:14:00 Test Item Value Reference Range Interpretation Comments Neutrophils # (test code = Neutrophils 7352 1897-5683 #) [facility]PpwvvqxPLCEVMFPNS6264-53-25 17:14:00 Test Item Value Reference Range Interpretation Comments Lymphocytes # (test code = Lymphocytes 5159 8503900 #) [facility] HendersonCfwkafbVMTFICKUAD7309-93-92 17:14:00 Test Item Value Reference Range Interpretation Comments Monocytes # (test code = Monocytes #) 867 200-950 [facility]CrfayxiRGTAAHYLPU8461-76-95 17:14:00 Test Item Value Reference Range Interpretation Comments Eosinophils # (test code = Eosinophils 107 15-500 #) [facility] HendersonYzojrvuFLQGFQZGJI5597-95-21 17:14:00 Test Item Value Reference Range Interpretation Comments Basophils # (test code 64 See_Comment [Aut omated message] The = Basophils #) system which generated this result tra nsmitted reference range : <=200. The reference r alejandro was not used to int erpret this result as normal/abnormal . [facility] HendersonNnwtubmNQAAEFVGAN9214-91-69 17:14:00 Test Item Value Reference Range Interpretation Comments Segs (test code = Segs) 69.5 [facility] HendersonPgfhdepZENFHVALEL9635-40-48 17:14:00 Test Item Value Reference Range Interpretation Comments Lymphocytes (test code = Lymphocytes) 20.8 [facility] HendersonSzoopizJNIRNRWCRA9145-21-89 17:14:00 Test Item Value Reference Range Interpretation Comments Monocytes (test code = Monocytes) 8.1 [facility] HendersonPaocwvuCVZEWNGMSN5564-70-05 17:14:00 Test Item Value Reference Range Interpretation Comments Eosinophils (test code = Eosinophils) 1.0 [facility] HendersonFxdiuitAFINCPHUPC0165-74-30 17:14:00 Test Item Value Reference Range Interpretation Comments Basophils (test code = Basophils) 0.6 [place] 111110-12-23 17:14:00 Test Item Value Reference Range Interpretation Comments Sed Rate (test code = Sed Rate) 6 [facility]villeAdeeqfhNNLETOLYKA0107-19-32 17:14:00 Test Item Value Reference Range Interpretation Comments C-REACTIVE PROTEIN (test code = 4.7 C-REACTIVE PROTEIN) [facility]2020-12-23 17:14:00 Test Item Value Reference Range Interpretation Comments Vitamin B12 Lvl (test code = Vitamin 197 [id number] B12 Lvl) [id number] 17:14:00 Test Item Value Reference Range Interpretation Comments WBC X 10x3 (test code = WBC X 10x3) 10.7 3.8-10.8 [id number] 17:14:00 Test Item Value Reference Range Interpretation Comments RBC X 10x6 (test code = RBC X 10x6) 5.07 4.20-5.80 [id number] 17:14:00 Test Item Value Reference Range Interpretation Comments Hgb (test code = Hgb) 14.1 13.2-17.1 [id number] 17:14:00 Test Item Value Reference Range Interpretation Comments Hct (test code = Hct) 41.4 38.5-50.0 [id number] 17:14:00 Test Item Value Reference Range Interpretation Comments MCV (test code = MCV) 81.7 80.0-100.0 [id number] 17:14:00 Test Item Value Reference Range Interpretation Comments MCH (test code = MCH) 27.8 pg 27.0-33.0 [id number] 17:14:00 Test Item Value Reference Range Interpretation Comments MCHC (test code = MCHC) 34.1 32.0-36.0 [id number] 17:14:00 Test Item Value Reference Range Interpretation Comments RDW (test code = RDW) 13.8 11.0-15.0 [id number] 17:14:00 Test Item Value Reference Range Interpretation Comments Platelet (test code = Platelet) 402 140-400 [id number] 17:14:00 Test Item Value Reference Range Interpretation Comments MPV (test code = MPV) 10.3 7.5-12.5 [id number] 17:14:00 Test Item Value Reference Range Interpretation Comments Neutrophils # (test code = Neutrophils 7437 [id number] #) [facility]kinXR SHOULDER <2 VW [id number] 19:43:43No fractures or dislocationsUniverswvumedicine [facility]
[2023-03-24 08:04] LABS: Absolute Lymphocytes (CBC) 1.8 K/uL (0.7-4.9); Hematocrit 39.1 % (39.6-49.0); Lymphocytes % 14.9 % (15.3-44.8); MCV 81.6 fL (80-100); MPV 7.6 fL (7.6-11.3); RBC Red Blood Cell Count 4.79 M/uL (4.33-5.43)
[2023-03-24] MEDS ORDERED: KETOROLAC 30 MG/ML INJ ONE (08:04)
[2023-03-24 08:21] LABS: Albumin 4.7 g/dL (3.4-5.0); Bilirubin Total 0.3 mg/dL (0.2-1.0); Potassium 3.4 mEq/L (3.5-5.1); Troponin High Sensitivity 33.6 pg/mL (<58.9)
--- NOTE | 2023-03-24 08:39 | RAD REPORT ---
EXAM DESCRIPTION: CT - Chest Abdomen Pelvis W Cont - 03/24/2023 8:09 am CLINICAL HISTORY: TRAUMA COMPARISON: Stone Protocol dated 12/29/2020 TECHNIQUE: Thin axial CT images of the chest, abdomen, and pelvis, performed following intravenous a dministration of 95 mL Isovue-300. Multiplanar reformats were generated and reviewed. All CT scans are performed using dose optimization technique as appropriate and may include automated exposure control or mA/KV adjustment according to patient size. FINDINGS: The lungs are clear.No pleural or pericardial effusion.No intrathoracic adenopathy. 1.3 ce ntimeter hypoattenuating left thyroid nodule was incidentally noted. The liver, spleen, pancreas, adrenal glands, and kidneys are within normal limits apart from few nono bstructing left renal calculi, largest measuring 7 millimeter at the lower pole. Left renal superior pole 2.3 centimeters cyst appears stable. Status post cholecystectomy. No bowel obstruction, free air, free fluid or abscess. Normal appendix. No pathologic lymphadenopath y in the abdomen or pelvis. No worrisome osseous finding. IMPRESSION: No acute traumatic findings in the abdomen and pelvis. Incidental findings as above, including left thyroid lobe 1.3 centimeter nodule, and nonobstructing l eft renal calculi.
--- NOTE | 2023-03-24 09:06 | ER ---
Nurse's Notes [facility] Name: Alcides Bustos Age: 67 yrs Sex: Male : 1955 Arrival Date: 03/24/2023 Time: 04:52 Bed 15 Private MD: Diagnosis: Syncope, right flank contusion Presentation: 03/24 05:09 Chief complaint: Patient states: "I was going to the bathroom and got dizzy and fell" as6 Patient's son or daughter states: "We don't know how long he was on the floor and exactly what he hit. we do know he hit his head". Coronavirus screen: At this time, the client does not indicate any symptoms associated with coronavirus-19. Ebola Screen: No symptoms or risks identified at this time. Initial Sepsis Screen: Does the patient meet any 2 criteria? No. Patient's initial sepsis screen is negative. Does the patient have a suspected source of infection? No. Patient's initial sepsis screen is negative. Risk Assessment: Do you want to hurt yourself or someone else? Patient reports no desire to harm self or others. Onset of symptoms was March 24, 2023. 05:09 Method Of Arrival: Wheelchair as6 05:09 Acuity: VIC 3 as6 Triage Assessment: 05:13 General: Appears in no apparent distress. Behavior is calm, cooperative. Pain: as6 Complains of pain in face and chest. EENT: No deficits noted. No signs and/or symptoms were reported regarding the EENT system. Neuro: No deficits noted. Cardiovascular: No deficits noted. Respiratory: No deficits noted. GI: No deficits noted. No signs and/or symptoms were reported involving the gastrointestinal system. : No deficits noted. No signs and/or symptoms were reported regarding the genitourinary system. Derm: scratch on right rib. Historical: - Allergies: 05:11 PENICILLINS; as6 05:11 Demerol; 6 05:11 Codeine; as6 - PMHx: 05:11 Hypertensive disorder; Hypercholesterolemia; Diabetes mellitus; cancer; as6 - PSHx: 05:11 postate; as6 - Immunization history:: Client reports receiving the 2nd dose of the Covid vaccine. - Social history:: Smoking status: Patient denies any tobacco usage or history of. Screenin:50 Abuse screen: Denies threats or abuse. Denies injuries from another. Nutritional aa9 screening: No deficits noted. Tuberculosis screening: No symptoms or risk factors identified. 10:45 [facility] ED Fall Risk Assessment (Adult) History of falling in the last 3 months, sg5 including since admission Yes- single mechanical fall (1 pt). Assessment: 05:30 Reassessment: Patient appears in no apparent distress at this time. Patient and/or aa9 family updated on plan of care and expected duration. Pain level reassessed. Patient is alert, oriented x 3, equal unlabored respirations, skin warm/dry/pink. Vital Signs: 05:09 BP 187 / 69; Pulse 56; Resp 18 S; Temp 98.6(TE); Pulse Ox 98% on R/A; Weight 88.45 kg as6 (R); Height 5 ft. 9 in. (R); Pain 9/10; 08:19 BP 159 / 62; Pulse 64; Resp 20; Pulse Ox 100% on R/A; Pain 8/10; sg5 10:26 BP 152 / 69; Pulse 66; Resp 18; Pulse Ox 98% on R/A; Pain 5/10; sg5 05:09 Body Mass Index 28.80 (88.45 kg, 175.26 cm) as6 05:09 Pain Scale: Adult as6 08:19 Pain Scale: Adult sg5 10:26 Pain Scale: Adult sg5 ED Course: 04:57 Patient arrived in ED. ja2 05:11 Triage completed. as6 05:13 Arm band placed on. as6 06:01 Emperatriz Lopez, RN is Primary Nurse. aa9 06:06 Head C Spine Mpr Wo Con In Process Unspecified. EDMS 06:25 XRAY Ribs BILATERAL w/chest In Process Unspecified. EDMS 07:00 Ciaran Arenas MD is Attending Physician. sp3 07:58 Initial lab(s) drawn, by me, sent to lab. Inserted saline lock: 20 gauge in left mm9 antecubital area, using aseptic technique. Blood collected. 07:59 Patient has correct armband on for positive identification. Placed in gown. Bed in low mm9 position. Adult w/ patient. Warm blanket given. Pulse ox on. NIBP on. 07:59 Troponin High Sensitivity Sent. mm9 07:59 CBC with Diff Sent. mm9 07:59 CMP Sent. mm9 07:59 Lipase Sent. mm9 08:11 Chest Abdomen Pelvis W Cont In Process Unspecified. EDMS 08:56 EKG done, by ED staff, reviewed by Ciaran Arenas MD. mm9 10:44 No provider procedures requiring assistance completed. IV discontinued. sg5 Administered Medications: 07:58 Drug: Ketorolac IVP 30 mg Route: IVP; Site: left antecubital; sg5 09:19 Drug: NS 0.9% IV 1000 ml Route: IV; Rate: 1 bolus; Site: left antecubital; sg5 10:44 Follow up: IV Status: Completed infusion; IV Intake: 1000ml sg5 Medication: 10:45 VIS not applicable for this client. sg5 Intake: 10:44 IV: 1000ml; Total: 1000ml. sg5 Outcome: 09:05 Discharge ordered by . sp3 10:44 Discharged to home ambulatory, via wheelchair, with family. sg5 10:44 Condition: good 10:44 Condition: good 10:44 Discharge instructions given to patient, Instructed on discharge instructions, follow up and referral plans. 10:47 Patient left the ED. sg5 Signatures: Dispatcher [employer] Ciaran Bennett MD MD sp3 Shannen Ortiz Ashby, RN RN as6 Emperatriz Lopez, MAAME RN Miriam Hickey Stephanie, MAAME RN sg5 Corrections: (The following items were deleted from the chart) 06:50 05:00 Reassessment: Patient appears in no apparent distress at this time. Patient aa9 and/or family updated on plan of care and expected duration. Pain level reassessed. Patient is alert, oriented x 3, equal unlabored respirations, skin warm/dry/pink. aa9
--- NOTE | 2023-03-24 09:06 | EDPHYS ---
Physician Documentation [facility] Name: Alcides Bustos Age: 67 yrs Sex: Male : 1955 Arrival Date: 03/24/2023 Time: 04:52 Bed 15 Private MD: ED Physician Ciaran Arenas HPI: 03/24 07:34 This 67 yrs old Male presents to ER via Wheelchair with complaints of Fall Injury, Head sp3 Injury With LOC-Adult. 07:34 67-year-old male with history of hypertension, hyperlipidemia, diabetes now presents to sp3 the ED with chief complaint syncope and fall while in the restroom at approximate 11:30 PM yesterday evening. Patient hit his head on the side and then his right flank on a wooden chest and then subsequently fell to the ground where he laid there for approximately 45 minutes until family member was able to assist. He denies any prodrome to the syncope including chest pain, generalized weakness, dizziness, vertigo, abdominal pain, or any other signs or symptoms. He currently has right flank pain extending from his right scapula down to the right lower region of his back. He denies any motor or sensory deficits or symptoms. Pain is positional and at baseline is low but upon movement increases significantly. He currently denies any headache, neck pain, chest pain, shortness of breath, anterior abdominal pain, nausea, vomiting, diarrhea, focal motor or neurological deficit, rash, bleeding, or any other signs or symptoms on ROS at this time.. Historical: - Allergies: 05:11 PENICILLINS; as6 05:11 Demerol; as6 05:11 Codeine; as6 - PMHx: 05:11 Hypertensive disorder; Hypercholesterolemia; Diabetes mellitus; cancer; as6 - PSHx: 05:11 postate; as6 - Immunization history:: Client reports receiving the 2nd dose of the Covid vaccine. - Social history:: Smoking status: Patient denies any tobacco usage or history of. ROS: 07:36 Constitutional: Negative for fever, chills, and weight loss, Eyes: Negative for injury, sp3 pain, redness, and discharge, ENT: Negative for injury, pain, and discharge, Neck: Negative for injury, pain, and swelling, Cardiovascular: Negative for chest pain, palpitations, and edema, Respiratory: Negative for shortness of breath, cough, wheezing, and pleuritic chest pain, Abdomen/GI: Negative for abdominal pain, nausea, vomiting, diarrhea, and constipation, MS/Extremity: Negative for injury and deformity, Skin: Negative for injury, rash, and discoloration, Neuro: Negative for headache, weakness, numbness, tingling, and seizure, Psych: Negative for depression, anxiety, suicide ideation, homicidal ideation, and hallucinations, Allergy/Immunology: Negative for hives, rash, and allergies, Endocrine: Negative for neck swelling, polydipsia, polyuria, polyphagia, and marked weight changes, Hematologic/Lymphatic: Negative for swollen nodes, abnormal bleeding, and unusual bruising. 07:36 All other systems are negative. Exam: 07:36 Constitutional: This is a well developed, well nourished patient who is awake, alert, sp3 and in no acute distress. Head/Face: Normocephalic, atraumatic. Eyes: Pupils equal round and reactive to light, extra-ocular motions intact. Lids and lashes normal. Conjunctiva and sclera are non-icteric and not injected. Cornea within normal limits. Periorbital areas with no swelling, redness, or edema. ENT: Nares patent. No nasal discharge, no septal abnormalities noted. External auditory canals are clear. Oropharynx with no redness, swelling, or masses, exudates, or evidence of obstruction, uvula midline. Mucous membranes moist. Neck: Trachea midline, no thyromegaly or masses palpated, and no cervical lymphadenopathy. Supple, full range of motion without nuchal rigidity, or vertebral point tenderness. No Meningismus. Chest/axilla: Normal chest wall appearance and motion. Nontender with no deformity. No lesions are appreciated. Cardiovascular: Regular rate and rhythm with a normal S1 and S2. No gallops, murmurs, or rubs. Normal PMI, no JVD. No pulse deficits. Respiratory: Lungs have equal breath sounds bilaterally, clear to auscultation and percussion. No rales, rhonchi or wheezes noted. No increased work of breathing, no retractions or nasal flaring. Abdomen/GI: Soft, non-tender, with normal bowel sounds. No distension or tympany. No guarding or rebound. No evidence of tenderness throughout. Skin: Warm, dry with normal turgor. Normal color with no rashes, no lesions, and no evidence of cellulitis. MS/ Extremity: Pulses equal, no cyanosis. Neurovascular intact. Full, normal range of motion. Neuro: Awake and alert, GCS 15, oriented to person, place, time, and situation. Cranial nerves II-XII grossly intact. Motor strength 5/5 in all extremities. Sensory grossly intact. Cerebellar exam normal. Normal gait. Psych: Awake, alert, with orientation to person, place and time. Behavior, mood, and affect are within normal limits. 07:36 Constitutional: The patient appears Patient resting comfortably with normal vital signs with some mild hypertension otherwise normal. Pulse ox is normal and respiratory rate is also normal. 07:36 Back: Large abrasion extending from the mid right side of ribs inferior to right lower back with some ecchymosis present as well. There is no anterior abdominal pain. Breath sounds equal bilaterally.. 09:02 ECG was reviewed by the Attending Physician. EKG demonstrates normal sinus rhythm 60 sp3 bpm with right bundle branch block and nonspecific diffuse ST/T changes without evidence of acute ischemia. Vital Signs: 05:09 BP 187 / 69; Pulse 56; Resp 18 S; Temp 98.6(TE); Pulse Ox 98% on R/A; Weight 88.45 kg as6 (R); Height 5 ft. 9 in. (R); Pain 9/10; 08:19 BP 159 / 62; Pulse 64; Resp 20; Pulse Ox 100% on R/A; Pain 8/10; sg5 10:26 BP 152 / 69; Pulse 66; Resp 18; Pulse Ox 98% on R/A; Pain 5/10; sg5 05:09 Body Mass Index 28.80 (88.45 kg, 175.26 cm) as6 05:09 Pain Scale: Adult as6 08:19 Pain Scale: Adult sg5 10:26 Pain Scale: Adult sg5 MDM: 07:02 Patient medically screened. sp3 07:37 Data reviewed: vital signs, nurses notes, lab test result(s), EKG, radiologic studies. sp3 ED course: 67-year-old male with extensive past medical history now presents for syncope and fall related injuries. Nursing protocol initiated CT scan of the head and C-spine which are negative and rib x-rays which I have read as no fracture found and chest x-ray demonstrating normal lung expansion. However due to the extent of his ecchymoses and abrasions, I have added on a CT scan of the abdomen and pelvis with IV contrast, laboratory values and EKG to work-up his syncope. Although his symptoms of syncope are now resolved, I do not believe this was a mechanical fall alone. He has had vertigo in the past and has also had falls in the past but this presentation warrants the above work-up. If that work-up is negative and patient has no further symptoms and pain is controlled, will consider discharge home with appropriate PCP follow-up.. 09:04 ED course: CTs demonstrate no significant traumatic abnormality. Patient is mildly sp3 hyponatremic at 128. Glucose is mildly elevated. We will administer normal saline 1 L and discharge patient safely home.. 03/24 07:20 Order name: CBC with Diff; Complete Time: 09:03 sp3 03/24 07:20 Order name: CMP; Complete Time: 09:03 sp3 03/24 07:20 Order name: Lipase; Complete Time: 09:03 sp3 03/24 07:20 Order name: Troponin High Sensitivity; Complete Time: 09:03 sp3 03/24 05:15 Order name: XRAY Ribs BILATERAL w/chest as6 03/24 06:06 Order name: Head C Spine Mpr Wo Con EDMS 03/24 07:58 Order name: Chest Abdomen Pelvis W Cont; Complete Time: 09:03 EDMS 03/24 07:20 Order name: EKG; Complete Time: 07:21 sp3 03/24 07:20 Order name: IV Saline Lock; Complete Time: 07:58 sp3 03/24 07:20 Order name: Labs collected and sent; Complete Time: 07:59 sp3 03/24 07:20 Order name: EKG - Nurse/Tech; Complete Time: 08:56 sp3 Administered Medications: 07:58 Drug: Ketorolac IVP 30 mg Route: IVP; Site: left antecubital; sg5 09:19 Drug: NS 0.9% IV 1000 ml Route: IV; Rate: 1 bolus; Site: left antecubital; sg5 10:44 Follow up: IV Status: Completed infusion; IV Intake: 1000ml sg5 Disposition Summary: 03/24/23 09:05 Discharge Ordered Location: Home sp3 Condition: Stable sp3 Diagnosis - Syncope, right flank contusion sp3 Followup: sp3 - With: Private Physician - When: Upon discharge from the Emergency Department - Reason: If symptoms return Discharge Instructions: - Discharge Summary Sheet sp3 - Rib Contusion sp3 - Syncope sp3 Forms: - Medication Reconciliation Form sp3 - Thank You Letter sp3 - Antibiotic Education sp3 - Prescription Opioid Use sp3 Prescriptions: - Diclofenac Sodium 75 mg Oral Tablet Sustained Release - take 1 tablet by ORAL route 2 times per day; 30 tablet; Refills: 0, Product sp3 Selection Permitted Signatures: Dispatcher [employer] EDMS Ciaran Arenas MD MD sp3 Ra Arizmendi RN RN as6 Libby Luo RN RN sg5 Corrections: (The following items were deleted from the chart) 06:06 05:14 C Spine Wo Con+CT.RAD.BRZ ordered. EDMS EDMS 07:58 07:20 Abdomen Pelvis W Con+CT.RAD.BRZ ordered. EDMS EDMS
[2023-03-24] MEDS ORDERED: NA CHLORIDE 0.9% 1,000 ML ONE (09:21)
[2023-03-24 11:04] VITALS: TEMP 98.6
[2023-03-24 11:20] VITALS: BP 152/69; O2SAT 98
--- NOTE | 2023-03-24 21:30 | RAD REPORT ---
EXAM DESCRIPTION: RAD - Ribs Bilateral W/Chest - 03/24/2023 6:24 am CLINICAL HISTORY: PAIN COMPARISON: CHEST PA AND LAT 2 VIEW dated 04/21/2015; Chest Abdomen Pelvis W Cont dated 03/24/2023 TECHNIQUE: AP view of the chest Bilateral ribs, 6 views. FINDINGS: Lungs are clear. Prominence along left costophrenic angle may relate to atelectasis or AP technique. Heart is normal in size. Mediastinal contours are unremarkable. No displaced rib fracture is evident. No aggressive rib lesion. No underlying pneumothorax, or sizable effusion. IMPRESSION: Negative bilateral rib series. No acute cardiopulmonary process.
--- NOTE | 2023-03-24 21:55 | RAD REPORT ---
EXAM DESCRIPTION: CT - Head C Spine Mpr Wo Con - 03/24/2023 6:51 am CLINICAL HISTORY: PAIN TECHNIQUE: 5 mm axial images were obtained through the brain without IV contrast. This exam was perf ormed according to our departmental dose-optimization program which includes use of Automated Exposur e Control, adjustment of the mA and/or kV according to patient size and/or use of iterative reconstru ction technique. COMPARISON: None. FINDINGS: There is diffuse enlargement of the ventricles and sulci compatible with cerebral atrophy, age-appropriate. There is no intra-axial or extra-axial bleed. No evidence of hydrocephalus. Low den sity periventricular white matter changes noted compatible with chronic small vessel ischemic disease . Atherosclerotic carotid arterial calcifications are identified. The visualized paranasal sinuses and mastoid air cells are patent. No fracture is identified. IMPRESSION: No acute intracranial abnormality. Senescent changes as described above. COMPARISON: None TECHNIQUE: Contiguous noncontrast axial images of the cervical spine were obtained. Sagittal and cor onal reformatted images are generated for review. This exam was performed according to our department al dose-optimization program, which includes automated exposure control, adjustment of the mA and/or kV according to patient size and/or use of iterative reconstruction technique. FINDINGS: BONES: The visualized osseous structures appear intact. The base of the odontoid is unrema rkable. The facet joints appear in anatomic alignment. The spinolaminar line is normal. DEGENERATIVE CHANGES: There is mild to moderate multilevel degenerative disease throughout the cervic al spine including mild degenerative arthrosis at C1-2. No significant facet arthropathy is identifie d. SOFT TISSUES: The prevertebral soft tissues are unremarkable. The visualized lung apices are clear. IMPRESSION: No acute osseous abnormality of the cervical spine. Electronically signed by: Dominic Summers MD 03/24/2023 6:24 AM CDT Due to temporary technical issues with the PACS/Fluency reporting system, reports are being signed by the in house radiologists without review as a courtesy to insure prompt reporting. The interpreting radiologist is fully responsible for the content of the report.
== END 2023-03-24 10:47 | disposition home or self-care (01) ==
LOC: ER 04:52
DX: R55 Syncope and collapse (principal); S30.1XXA Contusion of abdominal wall, initial encounter; E11.9 Type 2 diabetes mellitus without complications; I10 Essential (primary) hypertension; Z88.0 Allergy status to penicillin; Z88.5 Allergy status to narcotic agent
CPT/HCPCS: 96361; 85025; 36415; 84484; 83690; 80053; 70450; 72125; 71260; 74177; 71111; 96374; 99284; Q9967; J7030; 93005